=== PATIENT | male | born 1940 | race Caucasian/White ===

== ENCOUNTER 2024-02-16 04:18 | Day surgery (SDC) | payer BC ==
[2024-02-12 10:49] VITALS: BMI 37.7
[2024-02-16] MEDS ORDERED: ONDANSETRON 4 MG/2 ML VIAL IVPUSH PRN ×2 (12:38→14:10)
[2024-02-16] MEDS ORDERED: LACTATED RINGERS SOLUTION 1,000 ML IV SCH ×2 (12:45→14:15)
[2024-02-16] MEDS ORDERED: PROPOFOL 20 ML ONE ×2 (13:00→13:33)
[2024-02-16] MEDS ORDERED: FENTANYL CITRATE/PF 50 MCG/ML VIAL ONE (13:00)
[2024-02-16] MEDS: ceFAZolin SODIUM 1 GM VIAL IVPB ONE (13:15)
[2024-02-16] MEDS ORDERED: ACETAMINOPHEN INJECTION 100 ML IVPB ONE (13:16)
[2024-02-16] MEDS ORDERED: DEXAMETHASONE SOD PHOSPHATE 4 MG/1 ML VIAL ONE (13:17)
[2024-02-16] MEDS ORDERED: SODIUM CHLORIDE 0.9% P/F 10 ML VIAL IJ ONE (13:17)
[2024-02-16] MEDS ORDERED: ONDANSETRON 4 MG/2 ML VIAL ONE (13:17)
[2024-02-16] MEDS ORDERED: LIDOCAINE HCL/PF 2% SDV 5ML VIAL ONE (13:17)
[2024-02-16] MEDS ORDERED: ceFAZolin SODIUM 1 GM VIAL ONE (13:17)
[2024-02-16] MEDS ORDERED: GLYCOPYRROLATE 0.2 MG/1 ML VIAL ONE ×2 (13:24→13:37)
[2024-02-16] MEDS ORDERED: ELECTROLYTE-148 SOLN 1,000 ML IV SCH (14:15)
[2024-02-16 16:37] VITALS: RESP 18; TEMP 97.5
[2024-02-16 17:19] VITALS: BP 167/76; PULSE 54
== END 2024-02-16 18:34 | disposition home or self-care (01) ==
LOC: JASU-SURG 04:18
PROVIDERS: ATTEND Urology
PROC: 0TB78ZX Excision of Left Ureter, Via Natural or Artificial Opening Endoscopic, Diagnostic (ICD-10-PCS; principal; 2024-02-16 13:00)
DX: N13.30 Unspecified hydronephrosis (principal); N28.89 Other specified disorders of kidney and ureter
CPT/HCPCS: 76000-TC-FY; 82962; 88108; 88305-TC; 88341-TC; 88342-TC; 94760; C1769; C2617; J0131